=== PATIENT | female | born 1995 | race Two or more races ===

== ENCOUNTER 2016-10-09 18:51 | Emergency (ER) | payer SELFPAY ==
[~2016-10-09] VITALS: Ht 165.1 cm; Wt 49.9 kg
[2016-10-09 21:00] VITALS: BP 128/77
== END 2016-10-09 21:02 | disposition home or self-care (01) ==
LOC: ER 19:01
DX: S06.0X0A Concussion without loss of consciousness, initial encounter (principal); S16.1XXA Strain of muscle, fascia and tendon at neck level, initial encounter; V43.52XA Car driver injured in collision with other type car in traffic accident, initial encounter; Y93.89 Activity, other specified; Y92.488 Other paved roadways as the place of occurrence of the external cause; Y99.8 Other external cause status
CPT/HCPCS: 70450-TC; Z7610